=== PATIENT | female | born 1975 ===

== ENCOUNTER 2017-02-26 12:52 | Emergency (ER) | payer BC ==
[2017-02-26 13:50] VITALS: BP 100/74
--- NOTE | 2017-02-26 14:13 | UC ---
Complaint Female HPI - HPI Summary HPI Summary: "UTI" "Feel disoriented, a little in the clouds", suprapubic pressure, urinary frequency, urinary urgency, and dysuria for three and a half hours. Last UTI October 2015. Patient declines fever/chills, back pain, abdominal pain, NVD, gross hematuria, or abnormal vaginal discharge/itching/odor/pain. Patient is a speech pathologist. PCP Rosita ([place], [place]) [ End ] - History Of Current Complaint Chief Complaint: UCGU Stated Complaint: URINARY COMPLAINT Hx Obtained From: Patient Hx Last Menstrual Period: s/p Uterine Ablation 2012 ?: No Onset/Duration: Sudden Onset Timing: Constant Severity Initially: Mild Character: Burning Associated Signs And Symptoms: Positive: Negative - Allergies/Home Medications Allergies/Adverse Reactions: Allergies Allergy/AdvReac Type Severity Reaction Status Date / Time No Known Allergies Allergy Verified 02/26/17 13:37 Home Medications: Home Medications Probiotic Product [Probiotic Daily] 1 cap PO DAILY 02/26/17 [History Confirmed 02/26/17] PMH/Surg Hx/FS Hx/Imm Hx Previously Healthy: Yes Endocrine History Of: Denies: Thyroid Disease Cardiovascular History Of: Denies: Hypertension Respiratory History Of: Denies: Asthma Psychological History Of: Denies: Anxiety Cancer History Of: Denies: Lung Cancer - Surgical History Surgical History: Yes Surgery Procedure, Year, and Place: Uterine Ablation, 2012, [place]; C-Sections, 2002 2004 2006 - Family History Known Family History: Positive: None - Social History Occupation: Employed Full-time Lives: With Family Alcohol Use: Weekly Substance Use Type: None Smoking Status (MU): Never Smoked Tobacco Review of Systems Constitutional: Negative Skin: Negative Eyes: Negative ENT: Negative Respiratory: Negative Cardiovascular: Negative Gastrointestinal: Negative Genitourinary: Dysuria, Frequency Motor: Negative Neurovascular: Negative Musculoskeletal: Negative Neurological: Negative Psychological: Negative All Other Systems Reviewed And Are Negative: Yes Physical Exam Triage Information Reviewed: Yes Appearance: Well-Appearing, No Pain Distress, Well-Nourished Vital Signs: Initial Vital Signs Temp 97.9 F 02/26/17 13:35 Pulse 66 02/26/17 13:35 Resp 16 02/26/17 13:35 BP 100/74 02/26/17 13:35 Pulse Ox 100 02/26/17 13:35 Vital Signs Reviewed: Yes Eye Exam: Normal ENT Exam: Normal Dental Exam: Normal Neck exam: Normal Neck: Positive: 1 Respiratory Exam: Normal Cardiovascular Exam: Normal Abdominal Exam: Normal Musculoskeletal Exam: Normal Neurological Exam: Normal Psychological Exam: Normal Skin Exam: Normal Complaint Female Dx - Differential Dx/Diagnosis Differential Diagnosis/HQI/PQRI: Urinary Tract Infection Provider Diagnoses: UTI Discharge - Discharge Plan Condition: Good Disposition: HOME Prescriptions: Phenazopyridine 200 mg (NF) [Pyridium 200 MG tab] 200 mg PO TID #6 tab Sulfamethox/Trimethoprim DS* [Bactrim DS 800/160 TAB*] 1 tab PO BID #10 tab Patient Education Materials: Urinary Tract Infection in Women (ED) Referrals: Non Staff,Doctor [Primary Care Provider] - 3 Days (if not improved )
== END 2017-02-26 14:25 | disposition home or self-care (01) ==
LOC: UCCORT 12:52
DX: N39.0 Urinary tract infection, site not specified (principal)
CPT/HCPCS: 81003; 87077; 87086; 87186; 99202; G0463